=== PATIENT | female | born 1990 | race Caucasian/White ===

== ENCOUNTER 2018-11-18 21:34 | Emergency (ER) | payer BC ==
[2018-11-18] MEDS ORDERED: MORPHINE SULFATE 4 MG/ML SYRINGE IVP STA (22:29)
[2018-11-18] MEDS ORDERED: SODIUM CHLORIDE 0.9% 1,000 ML IV STA (22:29)
--- NOTE | 2018-11-18 22:54 | ED ---
Abdominal Pain HPI - General Source: patient Mode of arrival: wheelchair Limitations: no limitations <Franklin Eaton - Last Filed: 12/04/18 00:02> <France Mata P - Last Filed: 12/06/18 04:01> - General Chief Complaint: Abdominal Pain Stated Complaint: Female Time Seen by Provider: 11/18/18 21:43 - History of Present Illness Initial Comments: Patient is a 28-year-old female presenting to emergency Department with suprapubic pain. Patient reports having a hysterectomy on September 22 and has appeared for all gynnocologist checkups. patient reports not having intercourse for 5 weeks after the procedure. Patient reports having intercourse multiple times after the 5 week period. Patient reports having intercourse tonight when she developed severe suprapubic pain radiating to the lower back. Patient reports 2 episodes of vomiting and nausea. Patient denies any diarrhea, headache, lightheaded, dizziness. Patient reports small amounts of vaginal bleeding. (Franklin Eaton) - Related Data Allergies Allergy/AdvReac Type Severity Reaction Status Date / Time bee venom protein (honey bee) Allergy Swelling Verified 11/18/18 21:40 Review of Systems ROS Other: All systems not noted in ROS Statement are negative. <Franklin Eaton - Last Filed: 12/04/18 00:02> ROS Other: All systems not noted in ROS Statement are negative. <France Mata P - Last Filed: 12/06/18 04:01> ROS Statement: Those systems with pertinent positive or pertinent negative responses have been documented in the HPI. Past Medical History Additional Past Medical History / Comment(s): anemia Past Surgical History: Hysterectomy Past Psychological History: No Psychological Hx Reported Smoking Status: Never smoker Past Alcohol Use History: None Reported Past Drug Use History: None Reported <Franklin Eaton - Last Filed: 12/04/18 00:02> General Exam Limitations: no limitations General appearance: alert, in no apparent distress Head exam: Present: atraumatic, normocephalic, normal inspection Eye exam: Present: normal appearance Neck exam: Present: normal inspection Respiratory exam: Present: normal lung sounds bilaterally Cardiovascular Exam: Present: regular rate, normal rhythm, normal heart sounds GI/Abdominal exam: Present: soft, tenderness, guarding (Suprapubic and right lower quadrant). Absent: rigid External exam: Present: normal external exam Speculum exam: Present: vaginal bleeding Back exam: Present: normal inspection, full ROM Neurological exam: Present: alert, oriented X3 Psychiatric exam: Present: normal affect, normal mood Skin exam: Present: warm, intact, normal color <Franklin Eaton - Last Filed: 12/04/18 00:02> Course Vital Signs 11/18/18 11/18/18 11/19/18 21:38 23:10 01:11 Temperature 97.8 F 98.0 F 97.7 F Pulse Rate 99 78 89 Respiratory 18 18 14 Rate Blood Pressure 99/70 114/65 112/68 O2 Sat by Pulse 100 100 99 Oximetry 11/19/18 01:16 Temperature Pulse Rate 88 Respiratory 16 Rate Blood Pressure 123/67 O2 Sat by Pulse 96 Oximetry Medical Decision Making - Lab Data Result diagrams: 11/18/18 23:05 11/18/18 23:05 <Franklin Eaton - Last Filed: 12/04/18 00:02> - Lab Data Result diagrams: 11/18/18 23:05 11/18/18 23:05 <France Mata - Last Filed: 12/06/18 04:01> - Medical Decision Making Patient is a 28-year-old female presenting to emergency Department with suprapubic pain. CBC, CMP and CT were ordered. Patient was given 4 mg of morphine, 4 mg of Zofran and 1 L of fluids. At this time care will be transferred to Dr. Mata. (Franklin Eaton) I took over patient care from Franklin POLK. Patient is a 28-year-old female who is status post hysterectomy at an outside facility. Patient's CT resulted with pelvic inflammation worse on the right than the left, with possible inflammation of the appendix. These results were discussed with the surgeon on-call Dr. Martinez who recommends the patient be transferred back to [facility] where her gynecologic surgeon operates. Patient care was discussed with ER provider who initially declined transfer concern for acute abdomen which should be evaluated by our surgeon, Dr. Landa again evaluated the computed tomography scan himself and did not believe this is acute appendicitis. He discussed this with the team at [facility] who accepted the transfer. Plan was discussed with the patient who is agreeable for transfer back to [facility] for evaluation by her gynecologic surgeon. (France Mata) - Lab Data Lab Results 11/18/18 11/18/18 Range/Units 23:05 23:05 WBC 18.4 H (3.8-10.6) k/uL RBC 5.28 (3.80-5.40) m/uL Hgb 13.6 (11.4-16.0) gm/dL Hct 43.1 (34.0-46.0) % MCV 81.6 (80.0-100.0) fL MCH 25.8 (25.0-35.0) pg MCHC 31.6 (31.0-37.0) g/dL RDW 15.4 (11.5-15.5) % Plt Count 325 (150-450) k/uL Neutrophils % 91 % Lymphocytes % 5 % Monocytes % 3 % Eosinophils % 0 % Basophils % 0 % Neutrophils # 16.8 H (1.3-7.7) k/uL Lymphocytes # 1.0 (1.0-4.8) k/uL Monocytes # 0.5 (0-1.0) k/uL Eosinophils # 0.0 (0-0.7) k/uL Basophils # 0.0 (0-0.2) k/uL Sodium 142 (137-145) mmol/L Potassium 4.6 (3.5-5.1) mmol/L Chloride 107 (98-107) mmol/L Carbon Dioxide 25 (22-30) mmol/L Anion Gap 10 mmol/L BUN 13 (7-17) mg/dL Creatinine 0.58 (0.52-1.04) mg/dL Est GFR (CKD-EPI)AfAm >90 (>60 ml/min/1.73 sqM) Est GFR (CKD-EPI)NonAf >90 (>60 ml/min/1.73 sqM) Glucose 92 (74-99) mg/dL Calcium 10.1 (8.4-10.2) mg/dL Total Bilirubin 0.4 (0.2-1.3) mg/dL AST 17 (14-36) U/L ALT 13 (9-52) U/L Alkaline Phosphatase 51 (38-126) U/L Total Protein 8.0 (6.3-8.2) g/dL Albumin 4.9 (3.5-5.0) g/dL Disposition Is patient prescribed a controlled substance at d/c from ED?: No <Franklin Eaton - Last Filed: 12/04/18 00:02> - Out of Hospital Transfer - Req. Specs Out of Hospital Transfer - Requested Specifics: Other Emergency Center ([facility]) <France Mata - Last Filed: 12/06/18 04:01> Clinical Impression: Abdominal pain Disposition: OTHER INSTITUTION NOT DEFINED Condition: Stable Referrals: None,Stated [Primary Care Provider] - 1-2 days
[2018-11-18] MEDS ORDERED: ONDANSETRON 4 MG/2 ML VIAL IVP STA (23:10)
[2018-11-18 23:41] LABS: Basophils % (A) 0 %; Eosinophils % (A) 0 %; HCT 43.1 % (34.0-46.0); HGB 13.6 gm/dL (11.4-16.0); Lymphocytes % (A) 5 %; MCH 25.8 pg (25.0-35.0); MCHC 31.6 g/dL (31.0-37.0); MCV 81.6 fL (80.0-100.0); Mean Platelet Volume 8.9; Monocytes # (A) 0.5 k/uL (0-1.0); Monocytes % (A) 3 %; Neutrophils # (A) 16.8 k/uL (1.3-7.7); Neutrophils % (A) 91 %; Platelet Count 325 k/uL (150-450); RBC 5.28 m/uL (3.80-5.40); RDW 15.4 % (11.5-15.5); WBC 18.4 k/uL (3.8-10.6)
[2018-11-18 23:54] LABS: ALT 13 U/L (9-52); AST 17 U/L (14-36); African American GFR (CKD) >90 (>60 ml/min/1.73 sqM); Albumin 4.9 g/dL (3.5-5.0); Alkaline Phosphatase 51 U/L (38-126); Anion Gap 10 mmol/L; Blood Urea Nitrogen 13 mg/dL (7-17); Calcium 10.1 mg/dL (8.4-10.2); Carbon Dioxide 25 mmol/L (22-30); Chloride 107 mmol/L (98-107); Glucose 92 mg/dL (74-99); Potassium 4.6 mmol/L (3.5-5.1); Sodium 142 mmol/L (137-145); Total Bilirubin 0.4 mg/dL (0.2-1.3)
--- NOTE | 2018-11-19 00:14 | CT ---
EXAM: CT Abdomen and Pelvis With Intravenous Contrast CLINICAL HISTORY: ITS.REASON CT Reason: Pain TECHNIQUE: Axial computed tomography images of the abdomen and pelvis with intravenous contrast. CTDI is 17 mGy and DLP is 726 mGy-cm. This CT exam was performed using one or more of the following dose reduction techniques: automated exposure control, adjustment of the mA and/or kV according to patient size, and/or use of iterative reconstruction technique. COMPARISON: No relevant prior studies available. FINDINGS: Lung bases: No mass. No consolidation. ABDOMEN: Liver: Unremarkable. Gallbladder and bile ducts: Unremarkable. Pancreas: Unremarkable. Spleen: Unremarkable. Adrenals: Unremarkable. Kidneys and ureters: No hydronephrosis. Stomach and bowel: No bowel obstruction. Thickened ileum and descending colon. PELVIS: Appendix: The definitely seen. Bladder: Unremarkable. Reproductive: Unremarkable. Tubal ligation clips are in place. ABDOMEN and PELVIS: Intraperitoneal space: Significant stranding and free fluid in the right greater than left lower abdomen extending down into the pelvis. Bones/joints: No acute fractures. Soft tissues: Unremarkable. Vasculature: No abdominal aortic aneurysm. Lymph nodes: No enlarged lymph nodes. IMPRESSION: 1. Significant inflammatory changes within the mesentery in the right greater than left lower quadrant extending down to the pelvis. Given history of possible reproductive organ process, it is possible that this is related to an infectious or inflammatory process of the pelvic organ. Correlation with pelvic ultrasound may be helpful. 2. Alternatively, given lack of clear visualization of the appendix, thickened ileal wall, and thickened descending colon, this may represent appendicitis versus infectious/inflammatory ileitis or colitis. However if there is an inflammatory process arising from the pelvic organs, it may be possible that these processes are reactive. May be helpful to perform a oral contrast CT abdomen for definitive diagnosis. <MYCVCSECTION> Critical Value Communications 11/19/18 00:03 Call Doctor Regarding Above results, called Dr. Mata on 11/19 00:04 (-04:00)
[2018-11-19] MEDS ORDERED: PIPERACILLIN-TAZOBACTAM 3.375 GM in SODIUM CHLORIDE 0.9% 100 ML IVPB STA (00:25)
[2018-11-19 01:13] VITALS: TEMP 97.7
[2018-11-19 01:17] VITALS: BP 123/67; PULSE 88; RESP 16
--- NOTE | 2018-11-23 02:14 | CDI ---
Dear France Mata DO: Please do addendum Clinical Impression and Disposition. Thank you, Trevor Solorio, Shoe Re[employer]er. If you have any questions, please contact Director Of Maintenance at [phone]. [facility]
== END 2018-11-19 01:17 | disposition short-term general hospital (02) ==
LOC: EC 21:34
DX: R10.31 Right lower quadrant pain (principal); R11.2 Nausea with vomiting, unspecified; N93.9 Abnormal uterine and vaginal bleeding, unspecified; Z91.030 Bee allergy status; Z90.710 Acquired absence of both cervix and uterus
CPT/HCPCS: 99285; 96365; 96375 ×2; 96361 ×2; 36415; 80053; 85025; 74177; J2543; J2270; J2405; Q9967